=== PATIENT | male | born 2000 | race Caucasian/White ===

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

== ENCOUNTER 2021-06-23 19:40 | Emergency (ER) | payer OTHER ==
[2021-06-23 19:57] VITALS: BP 115/66; PULSE 74; TEMP 97.9; BMI 31.5
== END 2021-06-23 21:00 | disposition home or self-care (01) ==
LOC: JERFT 19:40
DX: L03.011 Cellulitis of right finger (principal)
CPT/HCPCS: 99281-25

== ENCOUNTER 2021-11-03 09:25 | Emergency (ER) | payer OTHER ==
[2021-11-03 09:35] VITALS: BP 133/66; PULSE 86; RESP 19; TEMP 98.4; BMI 30.1
== END 2021-11-03 10:53 | disposition home or self-care (01) ==
LOC: JERFT 09:25
DX: L05.01 Pilonidal cyst with abscess (principal)
CPT/HCPCS: 99281-25

== ENCOUNTER 2021-12-26 16:47 | Emergency (ER) | payer OTHER ==
[2021-12-26 17:18] VITALS: BP 135/85; PULSE 83; RESP 16; TEMP 97.6; BMI 31.5
[2021-12-26] MEDS ORDERED: DIPHTH,PERTUSS(ACELL),TET 0.5 ML DISP.SYRIN IM ONE ×2 (17:21→18:01)
== END 2021-12-26 18:34 | disposition home or self-care (01) ==
LOC: JERFT 16:47
PROC: 3E0234Z Introduction of Serum, Toxoid and Vaccine into Muscle, Percutaneous Approach (ICD-10-PCS; principal; 2021-12-26)
DX: L05.01 Pilonidal cyst with abscess (principal)
CPT/HCPCS: 90471; 90715; 99283-25